=== PATIENT | female | born 1995 | race Hispanic/Latino ===

== ENCOUNTER 2017-04-21 21:34 | Emergency (ER) | payer MEDICAID, OTHER ==
[2017-04-21] MEDS ORDERED: MAG HYDROX/AL HYDROX/SIMETH ES 30 ML SUSP UDCUP ONE (23:30)
== END 2017-04-21 23:34 | disposition home or self-care (01) ==
LOC: EDH 21:34
DX: O99.613 Diseases of the digestive system complicating pregnancy, third trimester (principal); K21.9 Gastro-esophageal reflux disease without esophagitis; J02.9 Acute pharyngitis, unspecified; Z88.0 Allergy status to penicillin; Z3A.28 28 weeks gestation of pregnancy
CPT/HCPCS: 87880